=== PATIENT | female | born 1965 | race Caucasian/White ===

== ENCOUNTER 2019-01-24 10:33 | Inpatient (IN) | payer BC ==
[~2019-01-24] VITALS: Ht 162.6 cm; Wt 120.2 kg
[~2019-01-24 10:33] MED LIST: FLEXERIL PO; IBUPROFEN 600600 M1 PO; NORCO 5-325 TA1 EACH PO; PREMARIN0.45 MG
[2019-01-24 10:36] VITALS: BP 116/78
[2019-01-24 11:43] LABS: URINE BILIRUBIN 1+ (Negative); URINE BLOOD TRACE (Negative); URINE CLARITY CLEAR; URINE COLOR YELLOW; URINE GLUCOSE-RANDOM* NEGATIVE (Negative); URINE KETONES TRACE (Negative); URINE LEUKOCYTES-REFLEX NEGATIVE (Negative); URINE NITRITE-REFLEX NEGATIVE (Negative); URINE PROTEIN (DIPSTICK) NEGATIVE (Negative); URINE SPECIFIC GRAVITY <= 1.005 (1.005-1.035); URINE UROBILINOGEN 0.2 E.U./dl (0.2-1.0)
[2019-01-24 11:45] LABS: ICTOTEST (BILI CONFIRMATORY) Positive (Negative)
[2019-01-24 12:03] LABS: HEMATOCRIT 40.7 % (37.0-47.0); HEMOGLOBIN 14.2 gm/dL (12.0-15.0); MCH 30.3 pg (26.0-34.0); MCHC 34.8 g/dL (28.0-37.0); MCV 86.8 fL (80.0-100.0); PLATELET COUNT 137 thou/uL (150-400); RBC 4.69 mil/uL (4.20-5.00); RDW 13.1 % (10.5-14.5); WBC 12.9 thou/uL (4.0-11.0)
[2019-01-24 12:14] LABS: CALCIUM 8.9 mg/dL (8.5-10.1); TOTAL PROTEIN 6.9 g/dL (6.4-8.2)
[2019-01-24 12:21] LABS: POTASSIUM 2.9 mmol/L (3.5-5.1)
[2019-01-24 12:41] LABS: ABSOLUTE NEUTROPHILS 6.3 thou/uL (1.4-8.2); PLATELET ESTIMATE NORMAL
[2019-01-24 17:23] VITALS: BP 128/64
[2019-01-24 18:25] VITALS: BP 128/64
[2019-01-24 19:35] VITALS: BP 120/74
[2019-01-24 23:52] VITALS: BP 131/79
[2019-01-25 04:50] VITALS: BP 138/61
--- NOTE | 2019-01-25 05:55 | NUR ---
PT ARRIVED TO UNIT APPROX 1930, ADMISSION AND ASSESSMENT COMPLETED, CONSENTS SIGNED INCLUDING TELEMETRY DISCLOSURE. PT A&Ox4, UP AD HEIDE AND STEADY ON FEET. IN AIRBORNE ISOLATION FOR POSSIBLE MEASLES. PT HAS DIFFUSE RASH BRIGHT RED PAPULES EXCEPT ON THE FACE WHICH IS JUST SOLIDLY RED; OVER THE NIGHT, THE PAPULES HAVE FLATTENED AND BECOME LESS DISTINCT ON THE ARMS AND CHEST; THE BACK AND LEGS ARE STILL RAISED, BRIGHT RED SPOTS.PT REPORTS FEELING ITCHY; SKIN IS VERY WARM TO THE TOUCH. THERE IS A HEALING/SCABBED SPIDER BITE ON THE INNER RIGHT THIGH. DENIES TROUBLE BREATHING, BUT REPORTS STILL HAVING MINOR TROUBLE SWALLOWING PILLS/FOOD, TOLERATING LIQUIDS, REPORTS BEING VERY THIRSTY; DENIES NAUSEA, REPORTS ONE INSTANCE OF DIARRHEA THIS EVENING AFTER EATING. NEW IV STARTED IN THE LEFT AC AFTER THE IV IN HAND WAS PULLED OUT; IV ABX AND FLUIDS STARTED. NO OTHER CONCERNS, WILL CONTINUE TO MONITOR.
[2019-01-25 08:20] LABS: MAGNESIUM 1.9 mg/dL (1.8-2.4); POTASSIUM 3.7 mmol/L (3.5-5.1)
[2019-01-25 08:36] VITALS: BP 124/71
[2019-01-25 10:07] LABS: HEMATOCRIT 37.9 % (37.0-47.0); HEMOGLOBIN 12.8 gm/dL (12.0-15.0); MCH 29.7 pg (26.0-34.0); MCHC 33.8 g/dL (28.0-37.0); RBC 4.31 mil/uL (4.20-5.00); RDW 13.8 % (10.5-14.5); WBC 16.4 thou/uL (4.0-11.0)
[2019-01-25 10:35] LABS: ALBUMIN 2.6 g/dL (3.4-5.0); CREATININE 0.9 mg/dL (0.6-1.0); TOTAL BILIRUBIN 5.5 mg/dL (<0.1-1.0); TOTAL PROTEIN 5.7 g/dL (6.4-8.2)
[2019-01-25 11:07] LABS: HAV IgM AB (ANTI-HAV IgM) Negative (Negative); HEPATITIS B SURFACE AG Negative (Negative); HEPATITIS C VIRUS AB 0.1 (0.0-0.9)
--- NOTE | 2019-01-25 11:19 | NUR ---
RD consult received for pt with difficulty swallowing due to mouth soreness. Admitted with febrile illness and rash, workup pending. Class III extreme obesity, BMI 45. Usually eats well but hasn't for 2 days. Would like to have glucerna shakes until able to eat-ordered. Low nutrition risk
[2019-01-25 11:45] VITALS: BP 104/65
--- NOTE | 2019-01-25 12:20 | NUR ---
VASCULAR ACCESS NURSE ROUNDING. PICC LINE ORDERED FOR NONCOMPATABLE MEDS- SPOKE WITH THE INTERACTIVE ART DIRECTOR ERNESTINA AND SHE FEELS A 2ND PIV IS ADEQUATE AT THIS TIME. PICC IS ON HOLD AND WE WILL RETURN TO PLACE LINE IF NECESSARY
[2019-01-25 16:03] VITALS: BP 124/71
[2019-01-25 21:24] VITALS: BP 130/77
[2019-01-26 03:10] VITALS: BP 127/67
[2019-01-26 05:54] LABS: HEMATOCRIT 41.9 % (37.0-47.0); MCH 29.7 pg (26.0-34.0); MCHC 33.4 g/dL (28.0-37.0); MCV 88.9 fL (80.0-100.0); PLATELET COUNT 187 thou/uL (150-400); RBC 4.72 mil/uL (4.20-5.00); RDW 14.1 % (10.5-14.5)
[2019-01-26 06:48] LABS: CALCIUM 8.8 mg/dL (8.5-10.1); CREATININE 0.9 mg/dL (0.6-1.0); POTASSIUM 3.2 mmol/L (3.5-5.1); TOTAL PROTEIN 7.2 g/dL (6.4-8.2)
[2019-01-26 07:23] VITALS: BP 133/75
--- NOTE | 2019-01-26 07:46 | NUR ---
ASSUMED CARE AT 1900. PT DENIES NAUSEA OR SOB. REPORTS GENERALIZED DISCOMFORT R/T RASH. RASH IS A DEEP RED, NO SCALING/PEELING OR BLISTERING NOTED. STILL REPORTS A SORE THROAT/MILD TROUBLE SWALLOWING THICKER LIQUIDS OR PILLS. IVF INFUSING OVERNIGHT. PT HAD A SHOWER IN THE AM. NPO FROM MIDNIGHT UNTIL ABD ULTRA SOUND COMPLETED IN AM. NO OTHER CONCERNS, SHIFT REPORT GIVEN AT 0700, PT IN STABLE CONDITION.
[2019-01-26 08:24] LABS: ABSOLUTE NEUTROPHILS 6.1 thou/uL (1.4-8.2); METAMYELOCYTES 2 %
--- NOTE | 2019-01-26 14:26 | HC ---
[facility] [place] [address] CONSULTATION Name: ANNABELLA SUAREZ Room #: 353-P [facility] IN .R.#: [id number] Admission: 01/24/19 Attend Phys: Jose Jacob MD Discharge: Date of : 65 Report #: [id number] THIS REPORT FOR: //name// CC: SHARLA physician/PCP Jose Jacob DATE OF SERVICE: 01/25/2019 INFECTIOUS DISEASE CONSULTATION REASON FOR CONSULTATION: I was asked to evaluate concerning fever and rash. HISTORY OF PRESENT ILLNESS: The patient is a 53-year-old previously healthy individual who presents with recent fever associated with progressive rash. She denies any previous medical issues. She traveled to the [facility] and [place] on a cruise ship mid December. She did visit ports including [facility] and [place] and [facility]. No cruise ship outbreaks were noted. Her travel partners remained well. She returned on 12/17/2018. On 01/02/2019, she was carrying groceries in from her car when she noticed a sharp pain in her right upper inner thigh. She noticed an area of skin loss abruptly. Over the next 24 hours, she developed erythema. The erythema extended approximately 5 cm out from this central core. She did not lose any skin otherwise. There was no necrosis. She had mild tenderness, but mostly pruritus. She was treated with a 10-day course of Bactrim, which was completed on 01/16/2019. The rash improved. On 01/20/2019, she developed fever, chills and over the next 24 hours rash initially to her lower extremities and progressed to full body. Rash has been pruritic in nature. She also developed ulcerations in her mouth. She has had mild pharyngitis symptoms at the onset. She also has had intermittent nonproductive cough. No rhinorrhea. Mild headache. No reported adenopathy, arthritis, other neurologic issues. Denies any nausea, vomiting, or diarrhea. Her fever lasted approximately 48 hours. It has subsequently defervesced. She was treated with [id number] medications including Tylenol and ibuprofen. The rash progressed with definite pruritus. Presents now for further evaluation. The patient has had all of her childhood vaccinations. She has not been around any young youngsters or unvaccinated individuals as far as she knows. She stayed basically on the [place] line when she went to ports in [facility]. Her partner has been without illness. ALLERGIES: LATEX AND THIMEROSAL. MEDICATIONS: Prior to admission included Premarin, ibuprofen, hydrocodone. PAST MEDICAL HISTORY: [place] [address] CONSULTATION Name: DINOTAMIAANNABELLA Room #: 353-P [facility].#: [id number] Admission: 01/24/19 Attend Phys: Jose Jacob MD Discharge: Date of : 65 Report #: [id number] FAMILY HISTORY: Noncontributory. SOCIAL HISTORY: She is a smoker of cigarettes. Occasional alcohol intake. Has same sex partner. 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 REVIEW OF SYSTEMS: A 10-point review of systems was negative other than what is described above. PHYSICAL EXAMINATION: VITAL SIGNS: Afebrile and hemodynamically stable. GENERAL: Alert, cooperative, pleasant, in no acute distress. SKIN: With maculopapular rash, diffuse with areas of consolidation and erythroderma. Mild facial swelling. Several lesions involving her oral mucosa. EENT: Eyes with scleral icterus. NECK: Supple, with no thyromegaly or mass. CHEST: Clear. HEART: Regular. ABDOMEN: Soft, nontender with no hepatosplenomegaly or mass. Moderately obese. EXTREMITIES: Without clubbing, cyanosis or edema. Rash does involve the palms and soles. There were no petechial hemorrhages noted. JOINTS: Were without tenosynovitis. NEUROLOGIC: Cranial nerves intact. Strength in upper and lower extremities normal and symmetric. Sensation intact in upper and lower extremities. Mood was normal. LABORATORY STUDIES: Hemoglobin 12.8, WBC 16.4, platelet count 158,000. Initial differential showed 21% neutrophils, 28% bands, 34% lymphs, 9% monocytes, 8% eosinophils. Platelet morphology was normal. Sodium 139, potassium 3.7, bicarbonate 22, creatinine 0.9, bilirubin 5.5. AST 113, ALT 196, alkaline phosphatase 424, albumin at 2.6. Procalcitonin 9.7. Hepatitis A, B and C negative. Rubeola IgG greater than 300. Blood cultures pending. Group A strep antigen negative. Chest x-ray clear. IMPRESSION: A 53-year-old with maculopapular rash with predating fever, now associated with leukocytosis and hepatitis. The patient has multiple factors and her history to consider including travel to [place], suspected insect bite, exposure to sulfa, post-treatment febrile syndrome. I am suspecting sulfa reaction would be most common presentation with pruritic rash, CBC findings and hepatitis. However, the delayed onset of 4 days after finishing her course is a bit unusual. Delayed reaction to insect bite also a consideration. Viral exanthem also considered. RECOMMENDATIONS: We will continue supportive measures, corticosteroids, antihistamines and discontinue further antibiotic therapy. Check laboratory [address] [address] CONSULTATION Name: ANNABELLA SUAREZ Room #: 353-P [facility] IN .R.#: [id number] Admission: 01/24/19 Attend Phys: Jose Jacob MD Discharge: Date of : 65 Report #: [id number] studies including serologic workup, serial CBCs, liver function tests and ultrasound of the liver and spleen. <ELECTRONICALLY SIGNED> By: Hermes Russell MD 01/26/19 1426 [id number] Hermes Russell MD /nt
--- NOTE | 2019-01-26 15:27 | NUR ---
ASSUMED CARE OF PATIENT AT 0700. VSS. NORMAL SALINE INFUSING AT 100ML/HR. PATIENT CONTINUES TO HAVE GENERALIZED DEEP RED RASH ACROSS BODY. PATIENT VERBALIZED THAT BENADRYL SEEMS TO BE MOST EFFECTIVE IN MANAGING RASH. PHYSICAN ORDERED DERMATOLOGY CONSULT. ALERT AND ORIENTED X 4. ROOM AIR. CONTINUING TO MONITOR.
[2019-01-26 15:43] VITALS: BP 129/70
[2019-01-26 19:55] VITALS: BP 130/80
[2019-01-27 01:04] VITALS: BP 144/69
--- NOTE | 2019-01-27 07:53 | NUR ---
progress pt transferred from [facility] to room 457 vss, oriented to room call light system and poc. pt a/o x4 up ad gricelda. ivf's infusing as ordered, skin with diffuse macular papular rash from head to toe steroid cream applied as ordered benedryl iv for itching. voiding qs pt slept on and off throughout noc no further needs identified.
[2019-01-27 15:41] VITALS: BP 141/71
--- NOTE | 2019-01-27 17:02 | NUR ---
PT A&OX4, VSS, GENERALIZED PAIN. PATIENT SKIN IS REDDENED FROM HEAD TO TOE. SKIN WARM TO TOUCH, PATIENT STATES IT FEELS SENSATIVE AND ITCHES. PATIENT REMAINS ON CONTACT PRECAUTIONS. NO SIGNS OF DISTRESS, WILL CONTINUE TO MONITOR.
[2019-01-27 20:50] VITALS: BP 145/75
[2019-01-27 21:10] LABS: ADENOVIRUS Negative (Negative); INFLUENZA A Negative (Negative); INFLUENZA B Negative (Negative); METAPNEUMOVIRUS Negative (Negative); PARAINFLUENZA 1 Negative (Negative); PARAINFLUENZA 2 Negative (Negative); PARAINFLUENZA 3 Negative (Negative); RHINOVIRUS Negative (Negative); RSV A Negative (Negative); RSV B Negative (Negative)
[2019-01-27 23:06] LABS: HIV ANTIBODY Non Reactive (Non Reactive)
--- NOTE | 2019-01-28 03:47 | NUR ---
ASSUMED CARE OF PT AT 1900HRS. PT IS AOX4 AND UP AD HEIDE. PT DENIES NAUSEA OR PAIN. PT REPORTS STILL HAS GENERALIZED RASH AND IS ITCHY. PT WAS ABLE TO GET COMFORTABLE AND SLEEP PART OF THE SHIFT. VSS AND NO S/S OF ACUTE DISTRESS. WILL CONTINUE TO MONITOR.
[2019-01-28 07:41] VITALS: BP 146/76
[2019-01-28 14:06] LABS: SYPHILIS AB Negative (Negative)
[2019-01-28 14:44] VITALS: BP 154/83
--- NOTE | 2019-01-28 16:13 | NUR ---
Assumed patient care at 0715. Upon this mornings assessment, patient's skin was completely covered with a bright red rash. She has been pleasant and cooperative with her medications and treatments. Patient's skin has been improving as the day goes on and she has expressed some relief from this condition. Vital signs have been stable. Normal Saline is running at 100cc per hour; IV is patent. Will continue to monitor.
[2019-01-28 19:25] VITALS: BP 164/76
[2019-01-29 00:06] VITALS: BP 141/69
--- NOTE | 2019-01-29 02:09 | NUR ---
PATIENT AOX4 MAKES NEEDS KNOWN. PATIENT HAS RASH ALL OVER HER BODY, OTF DEJA SYNDROME, CREAM APPLIED. PATIENT DENIED PAIN OR DISCOMFORT ON THE RASH . 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 PATIENT ON C PAP AT NIGHT. PATIENT AMBULATES TO THE ROOM WITH STEADY GAITS. PATIENT IS UP AT HEIDE. PATIENT IN BED ASLEEP AT THIS TIME BREATHING REGULAR AND UNLABOURED.
[2019-01-29 08:00] VITALS: BP 177/82
[2019-01-29 09:31] LABS: ABSOLUTE NEUTROPHILS 5.2 thou/uL (1.4-8.2); BASOPHILS 1.4 % (0.0-2.0); HEMATOCRIT 32.5 % (37.0-47.0); LYMPHOCYTES 26.4 % (24.0-44.0); MCH 29.9 pg (26.0-34.0); MCHC 33.8 g/dL (28.0-37.0); MCV 88.5 fL (80.0-100.0); MONOCYTES 8.4 % (1.0-8.0); PLATELET COUNT 229 thou/uL (150-400); POLYS 47.8 % (36.0-66.0); RBC 3.67 mil/uL (4.20-5.00); RDW 14.5 % (10.5-14.5); WBC 10.9 thou/uL (4.0-11.0)
[2019-01-29 09:50] LABS: ALBUMIN 2.7 g/dL (3.4-5.0); CALCIUM 8.9 mg/dL (8.5-10.1); CREATININE 0.8 mg/dL (0.6-1.0); POTASSIUM 3.6 mmol/L (3.5-5.1); TOTAL BILIRUBIN 2.6 mg/dL (<0.1-1.0); TOTAL PROTEIN 6.4 g/dL (6.4-8.2)
--- NOTE | 2019-01-29 14:01 | NUR ---
INITIAL ASSESSMENT: SW reviewed chart and spoke with attending physician. Pt was admitted from home due to facial swelling, fever, rash and trouble swallowing. Pt is currently in isolation. ID following. Pt with Nathan Nish syndrome. Pt is currently on IV steroids and IV pain medication. Prior to admission, pt was independent with ADLs. Pt is alert/orientated x 4. Pt lives at home. Pt is employed and works from home. Plan is for pt to return home when medically stable. ELIDA is following to assist as needed with discharge planning.
[2019-01-29 15:00] VITALS: BP 179/85
--- NOTE | 2019-01-29 16:50 | NUR ---
Assumed patient care at 0715. Patient continues on contact isolation. Rash is getting better. She was given IV push Lasix and has been urinating without difficulty. Vital signs have been stable. At 0910 she requested and received Fentanyl for a "level seven" headache. She verbalized no further complaints. Patient started on a regular diet today and has tolerated this well. Will continue to monitor.
[2019-01-29 19:53] VITALS: BP 139/74
--- NOTE | 2019-01-30 04:45 | NUR ---
Pt. rested quietly at intervals during the night when checked on during frequent rounds. Continues to have spotty rash on her body and does c/o some itching. Scheduled benadryl given (see emar) with some relief. No c/o pain. Up ad gricelda in room.
[2019-01-30 05:06] LABS: IgE 2480 IU/mL (6-495)
[2019-01-30 05:29] LABS: HEMATOCRIT 33.6 % (37.0-47.0); HEMOGLOBIN 11.3 gm/dL (12.0-15.0); MCHC 33.7 g/dL (28.0-37.0); MCV 88.9 fL (80.0-100.0); RBC 3.78 mil/uL (4.20-5.00); RDW 14.4 % (10.5-14.5); WBC 9.9 thou/uL (4.0-11.0)
[2019-01-30 05:41] LABS: CALCIUM 9.1 mg/dL (8.5-10.1); CREATININE 0.8 mg/dL (0.6-1.0); POTASSIUM 3.9 mmol/L (3.5-5.1)
[2019-01-30 07:37] VITALS: BP 153/83
[2019-01-30 10:25] LABS: DIRECT BILIRUBIN 1.3 mg/dL (<0.1-0.3); MAGNESIUM 2.1 mg/dL (1.8-2.4); PHOSPHORUS 4.7 mg/dL (2.5-4.9); TOTAL BILIRUBIN 1.8 mg/dL (<0.1-1.0); TOTAL PROTEIN 7.1 g/dL (6.4-8.2)
[2019-01-30] MEDS ORDERED: NICOTINE TRANSD14 M1 TRANSDERM (12:33)
[2019-01-30] MEDS ORDERED: MAGNESIUM400 MG PO (12:34)
[2019-01-30] MEDS ORDERED: ACID CONTROLLER20 MG PO (12:35)
[2019-01-30] MEDS ORDERED: BENADRYL A12.5 MG/5 PO (12:36)
[2019-01-30] MEDS ORDERED: PREDNISONE 10 M10 M1 PO (12:39)
[2019-01-30] MEDS ORDERED: MUPIROCIN22 GM TOP (12:40)
[2019-01-30] MEDS ORDERED: TRIAMCINOLONE A80 G2 TOP (12:40)
[2019-01-30 14:45] VITALS: BP 153/83
[2019-01-30 14:58] VITALS: BP 145/61
--- NOTE | 2019-01-30 18:33 | NUR ---
Assumwed pt care this am, sge i up at gricelda walks with a steady gait. Rashes still present, itching still present but has improved significatnly as per pt. POC followed, no signs or vebalizations of distress have been noted. Assessed by PT and was cleared to go home, seen by Dr. Rutherford dc orders given. DC instructions and prescriptions given. IV removed. Pt was picked up by her friend Hernando, pt is now dc.
[2019-01-31 14:07] LABS: ANA INTERPRETATION Negative (Negative)
== END 2019-01-30 17:41 | disposition home or self-care (01) | DRG 442 ==
LOC: ER 10:33 → 3W 19:20 → 4W 01-27 00:04
PROVIDERS: Internal Medicine; Nurse Practitioner Family; Specialist; ADMIT Internal Medicine
DX: B17.9 Acute viral hepatitis, unspecified (principal); E46 Unspecified protein-calorie malnutrition; R65.10 Systemic inflammatory response syndrome (SIRS) of non-infectious origin without acute organ dysfunction; L51.1 Stevens-Johnson syndrome; L03.90 Cellulitis, unspecified; Z68.42 Body mass index [BMI] 45.0-49.9, adult; E80.6 Other disorders of bilirubin metabolism; E87.6 Hypokalemia; F17.210 Nicotine dependence, cigarettes, uncomplicated; D69.6 Thrombocytopenia, unspecified; R16.1 Splenomegaly, not elsewhere classified; K76.0 Fatty (change of) liver, not elsewhere classified; D64.9 Anemia, unspecified; E66.01 Morbid (severe) obesity due to excess calories; G47.33 Obstructive sleep apnea (adult) (pediatric); Z79.899 Other long term (current) drug therapy; Z88.2 Allergy status to sulfonamides; Z88.8 Allergy status to other drugs, medicaments and biological substances; Z91.040 Latex allergy status; Z88.6 Allergy status to analgesic agent
CPT/HCPCS: 10047; 10779; 10879